=== PATIENT | female | born 1990 | race Caucasian/White ===

== ENCOUNTER → 2016-12-28 | Outpatient (CLI) | payer OTHER ==
--- NOTE | 2016-12-28 13:46 | US ---
EXAMINATION TYPE: US gallbladder DATE OF EXAM: 12/28/2016 12:58 PM COMPARISON: NONE CLINICAL HISTORY: Gen ABd Pain R10.84, Cholecystitis K81.81. Patient stated has mildly elevated LFT; on meds for depression, ADHD and control Scheduled for HIDA SCAN today. Patient denies abdomina l pain with or without food. EXAM MEASUREMENTS: Liver Length: 15.2 cm Gallbladder Wall: 0.2 cm CBD: 0.5 cm Right Kidney: 10.2 x 5.7 x 4.3 cm TECHNOLOGIST IMPRESSION: wnl Pancreas: wnl Liver: wnl Gallbladder: wnl Evidence for sonographic Reynolds's sign: No CBD: wnl Right Kidney: wnl There is no ascites. IMPRESSION: No significant abnormalities evident.
--- NOTE | 2016-12-28 15:29 | NM ---
EXAMINATION TYPE: NM hepatobiliary w CCK DATE OF EXAM: 12/28/2016 3:18 PM COMPARISON: Gallbladder ultrasound same day HISTORY: Abdominal pain, cholecystitis TECHNIQUE: After the intravenous administration of 5.34 mCi Tc 99m Mebrofenin hepatobiliary scintigra phy is performed. Immediate images post injection. FINDINGS: There is satisfactory initial accumulation of tracer by the liver. The gallbladder is visualized wit hin 6 minutes. The small bowel activity is noted within 28 minutes. At one hour CCK was administere d, patient was injected with 1.3 mcg of Kinevac, and gallbladder ejection fraction is calculated at 9 0 %. Therefore there is no scintigraphic evidence of cystic or common bile duct obstruction to [address]cell[address] st acute cholecystitis.. IMPRESSION: Gallbladder ejection fraction is 90%
== END | disposition home or self-care (01) ==
LOC: RADUSMAIN 11:56
PROVIDERS: ATTEND Surgery
DX: K81.9 Cholecystitis, unspecified (principal); R10.84 Generalized abdominal pain
CPT/HCPCS: 76705; 78227; A9537; J2805

== ENCOUNTER 2017-01-14 10:02 | Day surgery (SDC) | payer OTHER ==
[2017-01-11 15:58] VITALS: BMI 27.3
[~2017-01-14 10:02] MED LIST: DEXAMETHASONE SOD PHOSPHATE 10 MG/ML 1 ML VIAL IV ONE; HEPARIN SODIUM,PORCINE 5,000 UNIT/ML 1 ML VIAL SQ ONE; MIDAZOLAM 2 MG/2 ML VIAL IV PRN; ONDANSETRON 4 MG/2 ML VIAL IVP ONE; SCOPOLAMINE 1.5MG/72HR PATCH TRANSDERM ONE; ceFAZolin 2 GM in SODIUM CHLORIDE 0.9% 100 ML IVPB ONE
[2017-01-14 10:56] VITALS: RESP 16
[2017-01-14] MEDS: LACTATED RINGERS 1,000 ML IV SCH ×2 (11:16→13:30)
[2017-01-14] MEDS ORDERED: LIDOCAINE 1% 20 ML VIAL (10MG/ML) FOR IV START INTRADERMA ONE (11:17)
--- NOTE | 2017-01-14 12:07 | P.GSHP ---
History of Present Illness H&P Date: 01/14/17 Chief Complaint: Right upper quadrant pain Is a 26-year-old female referred from Dr. Sarath Morales. Patient resides today for laparoscopic cholecystectomy. Her recent HIDA scan shows abnormal ejection fraction consistent with biliary hyperkinesis - Constitutional Constitutional: Reports as per HPI Past Medical History Past Medical History: No Reported History, GERD/Reflux History of Any Multi-Drug Resistant Organisms: None Reported Past Surgical History: Tonsillectomy Additional Past Surgical History / Comment(s): ectopic Past Anesthesia/Blood Transfusion Reactions: No Reported Reaction Past Psychological History: Anxiety, Depression Smoking Status: Current every day smoker Past Alcohol Use History: None Reported Additional Past Alcohol Use History / Comment(s): Has smoked 1/2 PPd for 8 yrs Past Drug Use History: None Reported - Past Family History Mother Family Medical History: Cancer Medications and Allergies Home Medications Medication Instructions Recorded Confirmed Type Dextroamphetamine/Amphetamine 30 mg PO BID 05/31/16 01/14/17 History [Adderall] Sertraline HCl [Zoloft] 150 mg PO DAILY 05/31/16 01/14/17 History Etonogestrel [Nexplanon ( 68 mg SQ DIRECTED 01/11/17 01/14/17 History control implant)] Omeprazole (Unknown Dose) 1 tab PO DAILY PRN 01/11/17 01/14/17 History Allergies Allergy/AdvReac Type Severity Reaction Status Date / Time No Known Allergies Allergy Verified 01/14/17 10:56 Surgical - Exam Vital Signs Temp Pulse Resp BP Pulse Ox 98.3 F 71 16 107/73 98 01/14/17 10:55 01/14/17 10:55 01/14/17 10:55 01/14/17 10:55 01/14/17 10:55 - General well developed, no distress - Eyes PERRL - ENT normal pinna - Neck no masses - Respiratory normal expansion - Cardiovascular Rhythm: regular - Abdomen Abdomen: soft, non tender Assessment and Plan Plan: Abnormal HIDA scan Right upper quadrant pain Chronic cholecystitis We'll perform laparoscopic cholecystectomy
[2017-01-14] MEDS ORDERED: KETOROLAC 30 MG/ML 1 ML VIAL ONE (12:27)
[2017-01-14] MEDS ORDERED: LIDOCAINE 1% INJ 10MG/ML (20 ML MDV) ONE (12:27)
[2017-01-14] MEDS ORDERED: HYDROmorphone (PF) 1 MG/ML ONE (12:27)
[2017-01-14] MEDS ORDERED: ROCURONIUM BROMIDE 10 MG/ML 10 ML VIAL IV ONE (12:27)
[2017-01-14] MEDS ORDERED: fentaNYL (PF) 50 MCG/ML 2 ML AMP ONE (12:27)
[2017-01-14] MEDS ORDERED: NEOSTIGMINE 1 MG/ML 10 ML VIAL ONE (12:27)
[2017-01-14] MEDS ORDERED: MIDAZOLAM 2 MG/2 ML VIAL ONE (12:27)
[2017-01-14] MEDS ORDERED: GLYCOPYRROLATE 0.2 MG/ML 2 ML VIAL ONE (12:27)
[2017-01-14] MEDS ORDERED: PROPOFOL 10 MG/ML 20 ML VIAL IV ONE (12:27)
[2017-01-14] MEDS ORDERED: SUCCINYLCHOLINE CHLORIDE 100 MG/5 ML SYR IV ONE (12:27)
[2017-01-14] MEDS ORDERED: BUPIVACAIN-EPI 0.25%-1:200,000 30 ML VIAL SQ ONE (12:52)
--- NOTE | 2017-01-14 13:03 | P.OP ---
Date of Procedure: 01/14/17 Preoperative Diagnosis: Cholecystitis Postoperative Diagnosis: Cholecystitis Procedure(s) Performed: Laparoscopic cholecystectomy Anesthesia: MAC Surgeon: Primitivo Morfin Estimated Blood Loss (ml): 5 Pathology: other (Gallbladder) Condition: stable Disposition: PACU Description of Procedure: The patient was placed on the operating table. The patient received a general endotracheal tube anesthesia. The patients abdomen was prepped and draped in the usual sterile fashion. Through an infraumbilical stab incision, the fascia of the anterior abdominal wall was grasped with a pair of Kochers and then the Veress needle was placed in the peritoneal cavity. Position of the Veress needle was confirmed with positive drop test. The abdomen was then insufflated. After adequate insufflation, the 10 mm trocar was placed in the peritoneal cavity. Following this the laparoscope was placed in the peritoneal cavity. The patient was placed in the head-up, right side up position and then a 5 mm trocar was placed in the right lateral and right subcostal position under direct visualization. A 8 mm trocar was placed in the epigastric position. The gallbladder was grasped in the fundus and infundibulum. Traction on the gallbladder was placed in the lateral and the cephalad positions. The triangle of Calot was visualized.. The cystic duct was bluntly dissected until the union of the cystic duct and common bile duct was seen. The cystic duct was then divided and sealed with the Harmonic scissors. A PDS Endoloop was then placed throughout the cystic duct stump. The cystic artery divided and sealed with the Harmonic scissors. The gallbladder was then removed from the liver bed using Harmonic scissors. The gallbladder was then extracted through the epigastric port site. Operative field was checked for any bleeding spots and Harmonic scissors was used to coagulate the liver bed. The abdomen was irrigated. The trocars were removed. The skin was closed using interrupted 3-0 Vicryl suture. Dermabond dressing were applied. The patient tolerated the procedure well.
[2017-01-14 13:25] VITALS: TEMP 97.4
[2017-01-14] MEDS: HYDROmorphone 1 MG/ML 1 ML SYRINGE IVP PRN ×2 (13:30→13:45)
[2017-01-14] MEDS ORDERED: HYDROcodone/APAP 7.5-325MG 1 EACH TAB PO ONE (14:31)
[2017-01-14] MEDS ORDERED: ONDANSETRON 4 MG/2 ML VIAL IVP ONE (15:38)
[2017-01-14 15:40] VITALS: BP 140/73; PULSE 73
== END 2017-01-14 15:45 | disposition home or self-care (01) ==
LOC: OR 10:02
PROVIDERS: ATTEND Surgery
DX: K81.1 Chronic cholecystitis (principal); K21.9 Gastro-esophageal reflux disease without esophagitis; Z79.899 Other long term (current) drug therapy; F17.200 Nicotine dependence, unspecified, uncomplicated; F32.9 Major depressive disorder, single episode, unspecified; F41.9 Anxiety disorder, unspecified
CPT/HCPCS: 47562; 81025; 88304; J2250; J1644; J1100; J2710; J0690; J2405; J2001; J3010; J1885; J1170; J0330; J2704

== ENCOUNTER → 2017-04-22 | Outpatient (CLI) | payer OTHER ==
--- NOTE | 2017-04-22 15:30 | XR ---
Lumbar spine HISTORY: Low back pain 3 views of the lumbar spine No comparisons There is a mild spinal curvature. Lumbar vertebral bodies show preserved height, alignment, and bone mineralization. There is multilevel spondylosis. Loss of disc height L4-5 and L5-S1. IMPRESSION: Degenerative disc disease.
== END | disposition home or self-care (01) ==
LOC: RADXRMAIN 12:00
PROVIDERS: ATTEND Family Medicine
DX: M51.36 Other intervertebral disc degeneration, lumbar region (principal)
CPT/HCPCS: 72100

== ENCOUNTER 2018-04-05 21:29 | Emergency (ER) | payer OTHER ==
[2018-04-05 22:01] VITALS: BP 112/66; PULSE 84; RESP 20; TEMP 99.1
[2018-04-05] MEDS ORDERED: CEPHALEXIN 500 MG CAP PO STA (22:59)
[2018-04-05] MEDS ORDERED: SULFAMETHOX-TMP 800-160MG 1 EACH TAB PO STA (22:59)
--- NOTE | 2018-04-05 23:08 | ED ---
Skin/Abscess/FB HPI - General Chief complaint: Skin/Abscess/Foreign Body Stated complaint: skin problems on arm Time Seen by Provider: 04/05/18 22:54 Source: patient, RN notes reviewed Mode of arrival: ambulatory Limitations: no limitations - History of Present Illness Initial comments: This is a 27-year-old female who presents to the emergency department with chief complaint of possible abscess. Patient states that yesterday she noticed a red lesion on her left wrist. She states that it is painful and is worried that it may be infected. She does state that she was concerned for MRSA as she works at [employer] in the [employer] field. She denies any fevers or chills. Denies any active drainage. Denies chest pain or shortness of breath, nausea or vomiting, dizziness or headache. Denies history of MRSA. - Related Data Home Medications Medication Instructions Recorded Confirmed Sertraline HCl [Zoloft] 150 mg PO DAILY 05/31/16 04/05/18 Etonogestrel [Nexplanon ( 68 mg SQ DIRECTED 01/11/17 04/05/18 control implant)] Omeprazole (Unknown Dose) 1 tab PO DAILY PRN 01/11/17 04/05/18 Dextroamphetamine/Amphetamine 30 mg PO BID 04/05/18 04/05/18 [Adderall] Previous Rx's Medication Instructions Recorded Cephalexin [Keflex] 500 mg PO Q12HR #20 cap 04/05/18 Sulfamethox-Tmp 800-160Mg [Bactrim 1 tab PO Q12HR #20 tab 04/05/18 DS 800-160 mg] Allergies Allergy/AdvReac Type Severity Reaction Status Date / Time No Known Allergies Allergy Verified 01/14/17 10:56 Review of Systems ROS Statement: Those systems with pertinent positive or pertinent negative responses have been documented in the HPI. ROS Other: All systems not noted in ROS Statement are negative. Past Medical History Past Medical History: GERD/Reflux History of Any Multi-Drug Resistant Organisms: None Reported Past Surgical History: Cholecystectomy, Tonsillectomy Additional Past Surgical History / Comment(s): ectopic Past Anesthesia/Blood Transfusion Reactions: No Reported Reaction Past Psychological History: Anxiety, Depression Smoking Status: Current every day smoker Past Alcohol Use History: None Reported Past Drug Use History: None Reported - Past Family History Mother Family Medical History: Cancer General Exam - General Exam Comments Initial Comments: General: Awake and alert, well-developed; in no apparent distress. HEENT: Head atraumatic, normocephalic. Pupils are equal, round and reactive to light. Extraocular movements intact. Oropharynx moist without erythema or exudate. Neck: Supple. Normal ROM. Cardiovascular: Regular rate and rhythm. No murmurs, rubs or gallops. Chest symmetrical. Respiratory: Lungs clear to auscultation bilaterally. No wheezes, rales or rhonchi. Normal respiratory effort with no use of accessory muscles. Musculoskeletal: Normal ROM, no tenderness bilateral upper and lower extremities. Ambulating normally. Skin: [place], warm and dry. Approximately half centimeter in diameter erythematous blister like lesion that is indurated with approximately 4 cm in diameter surrounding soft tissue swelling. Central dried blood. Neurological: Alert and oriented x3. CN II-XII grossly intact. Speech is fluent and answers are appropriate. No focal neuro deficits. Psychiatric: Normal mood and affect. No overt signs of depression or anxiety noted. Limitations: no limitations Course Vital Signs 04/05/18 21:58 Temperature 99.1 F Pulse Rate 84 Respiratory 20 Rate Blood Pressure 112/66 O2 Sat by Pulse 100 Oximetry Medical Decision Making - Medical Decision Making This is a 27-year-old female presents to the emergency department with chief complaint of possible abscess on her left forearm. On physical examination, there is a small blister like lesion that is erythematous and tender. No fluctuance, however it is indurated. Patient will be treated for cellulitis. 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 She will be started on Bactrim and Keflex. Vital signs are stable and patient is afebrile. She'll be discharged home at this time. She is in agreement with plan and voices understanding. All questions answered. Disposition Clinical Impression: Cellulitis Disposition: HOME SELF-CARE Condition: Good Instructions: Cellulitis (ED) Additional Instructions: Please take medications as prescribed. Please apply warm compresses 3-4 times daily. Please follow up with primary care provider within 1-2 days. Return to emergency department if symptoms should worsen or any concerns arise. Prescriptions: Cephalexin [Keflex] 500 mg PO Q12HR #20 cap Sulfamethox-Tmp 800-160Mg [Bactrim DS 800-160 mg] 1 tab PO Q12HR #20 tab Is patient prescribed a controlled substance at d/c from ED?: No Referrals: Sarath Morales MD [Primary Care Provider] - 1-2 days Time of Disposition: 23:04
== END 2018-04-05 23:10 | disposition home or self-care (01) ==
LOC: EC 21:29
DX: L03.114 Cellulitis of left upper limb (principal); F41.9 Anxiety disorder, unspecified; F32.9 Major depressive disorder, single episode, unspecified; F17.200 Nicotine dependence, unspecified, uncomplicated; Z97.5 Presence of (intrauterine) contraceptive device; Z79.899 Other long term (current) drug therapy
CPT/HCPCS: 99283

== ENCOUNTER → 2018-09-19 | Outpatient (CLI) | payer OTHER ==
--- NOTE | 2018-09-19 10:18 | US ---
EXAMINATION TYPE: US abdomen complete DATE OF EXAM: 09/19/2018 COMPARISON: 2017 CLINICAL HISTORY: R10.9 Abd and pelvic pain. EXAM MEASUREMENTS: Liver Length: 13.9 cm Gallbladder Wall: Surgically absent cm CBD: 0.3 cm Spleen: 8.7l cm Right Kidney: 10.1 x 4.1 x 3.7l cm Left Kidney: 9.2 x 5.1 x 4.2 cm Pancreas: obscured by overlying bowel gas Liver: wnl Gallbladder: Surgically absent Evidence for sonographic Reynolds's sign: No CBD: wnl Spleen: wnl Right Kidney: No hydronephrosis or nephrolithiasis seen Left Kidney: No hydronephrosis or nephrolithiasis seen Upper IVC: wnl Abd Aorta: wnl IMPRESSION: No acute process
--- NOTE | 2018-09-19 10:21 | US ---
EXAMINATION TYPE: US pelvis complete transvag DATE OF EXAM: 09/19/2018 COMPARISON: NONE CLINICAL HISTORY: R10.9 Abd and pelvic pain. TECHNIQUE: Transvaginal (TV) and Transabdominal (TA) . Transabdominal sonographic images of the pel vis were acquired. Transvaginal sonographic images were medically necessary to better assess the fol lowing anatomy: endometrium Date of LMP: 09/12/2018 EXAM MEASUREMENTS: Uterus: 7.0 x 2.6 x 3.2 cm Endometrial Stripe: 0.3 cm Right Ovary: 2.3 x 1.2 x 2.0 cm Left Ovary: 1.9 x 1.5 x 2.7 cm 1. Uterus: Anteverted small nabothian cyst 0.5 x 0.5 x 0.6 cm 2. Endometrium: wnl 3. Right Ovary: large cyst 4.6 x 3.6 x 5.7 cm 4. Left Ovary: small cyst 0.8 x 0.8 x0.8 cm 5. Posterior cul-de-sac: rt cyst extends into cul de sac IMPRESSION: 1. There is a large right ovarian cyst measuring 5.7 cm. Extends into the cul-de-sac to the right. Re commend a follow-up exam in 6 weeks to assess for resolution.
== END | disposition home or self-care (01) ==
LOC: RADUSWWP 09:15
PROVIDERS: ATTEND Family Medicine
DX: N83.201 Unspecified ovarian cyst, right side (principal)
CPT/HCPCS: 76700; 76830; 76856

== ENCOUNTER 2019-02-23 06:30 | Day surgery (SDC) | payer OTHER ==
[2019-02-20 13:34] VITALS: BMI 27.3
[~2019-02-23 06:30] MED LIST changes: +HYDROmorphone 0.5 MG/0.5 ML SYRINGE IVP PRN; +LACTATED RINGERS 1,000 ML IV SCH; -MIDAZOLAM 2 MG/2 ML VIAL IV PRN; +MORPHINE SULFATE 2 MG/ML SYRINGE IV PRN; +Pre Op ABX Message 1 EACH MISC MISCELLANE ONE; -SCOPOLAMINE 1.5MG/72HR PATCH TRANSDERM ONE; -ceFAZolin 2 GM in SODIUM CHLORIDE 0.9% 100 ML IVPB ONE
[2019-02-23 06:48] VITALS: RESP 16
[2019-02-23] MEDS ORDERED: LIDOCAINE 1% 20 ML VIAL (10MG/ML) FOR IV START INTRADERMA ONE (06:55)
[2019-02-23] MEDS ORDERED: fentaNYL (PF) 50 MCG/ML 2 ML AMP ONE (07:38)
[2019-02-23] MEDS ORDERED: LIDOCAINE 1% INJ 10MG/ML (20 ML MDV) ONE (07:38)
[2019-02-23] MEDS ORDERED: MIDAZOLAM 2 MG/2 ML VIAL ONE (07:38)
[2019-02-23] MEDS ORDERED: PROPOFOL 10 MG/ML 20 ML VIAL IV ONE (07:38)
--- NOTE | 2019-02-23 07:40 | P.GSHP ---
History of Present Illness H&P Date: 02/23/19 Chief Complaint: Left arm foreign body Patient here today for removal left arm foreign body. The patient had a subcutaneous contraceptive implant placed in the left medial brachial region. Attempts at removing this in the office by gynecology were unsuccessful. A she has mild discomfort there. No numbness or tingling. No weakness. She usually cannot feel the area herself. Past Medical History Past Medical History: GERD/Reflux History of Any Multi-Drug Resistant Organisms: None Reported Past Surgical History: Cholecystectomy, Tonsillectomy Additional Past Surgical History / Comment(s): ectopic Past Anesthesia/Blood Transfusion Reactions: No Reported Reaction Smoking Status: Current every day smoker - Past Family History Mother Family Medical History: Cancer Medications and Allergies Home Medications Medication Instructions Recorded Confirmed Type Sertraline HCl [Zoloft] 50 mg PO DAILY 05/31/16 02/23/19 History Etonogestrel [Nexplanon ( 68 mg SQ DIRECTED 01/11/17 02/23/19 History control implant)] Dextroamphetamine/Amphetamine 30 mg PO BID 04/05/18 02/23/19 History [Adderall] Omeprazole [PriLOSEC] 20 mg PO AC-BRKFST 02/20/19 02/23/19 History Allergies Allergy/AdvReac Type Severity Reaction Status Date / Time No Known Allergies Allergy Verified 02/23/19 06:47 Surgical - Exam Vital Signs Temp Pulse Resp BP Pulse Ox 9.7 F L 72 16 106/61 97 02/23/19 06:45 02/23/19 06:45 02/23/19 06:45 02/23/19 06:45 02/23/19 06:45 Physical exam: General: Well-developed, well-nourished HEENT: Normocephalic, sclerae nonicteric Abdomen: Nontender, nondistended Extremities: No edema, 1 cm transverse incision medial brachial region, very subtle palpation of linear foreign body Neuro: Alert and oriented Assessment and Plan (1) Foreign body in left upper extremity Narrative/Plan: Options reviewed with the patient previously. We'll proceed with removal at this time. Risks of bleeding, infection, nerve injury reviewed. She understands and wishes to proceed. Current Visit: Yes Status: Acute Code(s): S40.852A - SUPERFICIAL FOREIGN BODY OF LEFT UPPER ARM, INIT ENCNTR SNOMED Code(s): 571196846
[2019-02-23] MEDS ORDERED: SODIUM CHLORIDE 0.9% 100 ML with ceFAZolin 1,000 MG IV ONE ×2 (08:03)
[2019-02-23] MEDS ORDERED: SODIUM CHLORIDE 0.9% 100 ML with ceFAZolin 2,000 MG IV ONE ×2 (08:03)
[2019-02-23] MEDS ORDERED: BUPIVACAINE-EPI 0.5%-1:200,000 10 ML VIAL SQ ONE (08:04)
[2019-02-23 08:36] VITALS: TEMP 97.3
[2019-02-23] MEDS ORDERED: NALOXONE 0.4 MG/ML 1 ML VIAL IV PRN (08:43)
[2019-02-23] MEDS ORDERED: HYDROcodone/APAP 5-325MG 1 EACH TAB PO PRN (08:43)
--- NOTE | 2019-02-23 08:46 | P.OP ---
Date of Procedure: 02/23/19 Procedure(s) Performed: PREOPERATIVE DIAGNOSIS: Left arm foreign body POSTOPERATIVE DIAGNOSIS: Same PROCEDURE: Removal left arm foreign body with fluoroscopy SURGEON: Lidia EBL: Minimal ANESTHESIA: General COMPLICATIONS: None OPERATIVE PROCEDURE: Age and placed in the operative table in the supine position. The patient was placed under general anesthesia. The left arm was prepped and draped sterilely. The previous incision was re-incised. Using fluoroscopy I was able to identify the location of the foreign body. Careful dissection through the subcutaneous tissues using primarily blunt dissection took place. The linear contraceptive device was encapsulated. Sharp dissection over the encapsulation took place. The foreign body was then removed in one piece without difficulty. The subcutaneous tissues were closed using 3-0 Vicryl sutures. The skin was closed using 4-0 Monocryl suture. Skin glue was then applied. DISPOSITION: Stable to recovery room
--- NOTE | 2019-02-23 09:20 | XR ---
EXAMINATION TYPE: XR humerus LT DATE OF EXAM: 02/23/2019 COMPARISON: NONE HISTORY: Pain TECHNIQUE: 2 views submitted. FINDINGS: 2 Limited intraoperative views are obtained demonstrate intraoperative procedure as part of a foreign body retrieval. IMPRESSION: 1. Intraoperative image of the left humerus
--- NOTE | 2019-02-23 09:21 | FL ---
EXAMINATION TYPE: FL guidance operating room DATE OF EXAM: 02/23/2019 HISTORY: Flouroscopy time 13 seconds of fluoroscopy provided. IMPRESSION: 1. Fluoroscopy time.
[2019-02-23 09:36] VITALS: BP 103/68; PULSE 65
== END 2019-02-23 09:52 | disposition home or self-care (01) ==
LOC: OR 06:30
PROVIDERS: ATTEND Surgery
DX: S40.852A Superficial foreign body of left upper arm, initial encounter (principal); K21.9 Gastro-esophageal reflux disease without esophagitis; F17.210 Nicotine dependence, cigarettes, uncomplicated; F32.9 Major depressive disorder, single episode, unspecified; F41.9 Anxiety disorder, unspecified; Z79.899 Other long term (current) drug therapy; Z79.3 Long term (current) use of hormonal contraceptives
CPT/HCPCS: 10120; 81025; 73060; J2250; J1644; J1100; J2405; J0690; J2001; J3010; J2704

== ENCOUNTER → 2019-08-07 | Outpatient (CLI) | payer OTHER ==
--- NOTE | 2019-08-07 16:31 | US ---
EXAMINATION TYPE: Transabdominal DATE OF EXAM: 08/07/2019 1:58 PM COMPARISON: NONE CLINICAL HISTORY: Z36 Confirm dates. Confirm dates EXAM PERFORMED: Transabdominal (TA) EXAM MEASUREMENTS: GESTATIONAL AGE / DATING Physician Established: Not yet established Dates by LMP: LMP unknown Dates by First Scan: No previous this is first scan Dates by Current Scan for: (11 weeks/0 days) EDC: 02/26/2020 MATERNAL ANATOMY Uterus: 11.8 x 7.1 x 8.2 cm Right Ovary: 3.2 x 1.9 x 2.0 cm Left Ovary: Obscured by bowel gas. Post CDS / Adnexa: wnl Presence of free fluid: no Presence of corpus luteal cyst: yes right Presence of subchorionic bleed: Yes 2.3 x 1.0 x 2.3 cm. GESTATION / SURVEY CRL: 4.0cm (11 weeks/0 days) Heart Rate: 142 bpm Rhythm: normal IUP: Viable IUP IMPRESSION: 1. Single intrauterine gestation estimated at 11 weeks 0 days gestation based on crown-rump length. C ardiac activity measures 142 bpm.
== END | disposition home or self-care (01) ==
LOC: RADUSWWP 13:28
PROVIDERS: ATTEND Obstetrics & Gynecology
DX: Z36.89 Encounter for other specified antenatal screening (principal)
CPT/HCPCS: 76801

== ENCOUNTER 2020-02-08 07:51 | Inpatient (IN) | payer OTHER ==
[2020-02-08] MEDS ORDERED: METHYLERGONOVINE 0.2 MG/ML 1 ML AMP IM PRN (08:10)
[2020-02-08] MEDS ORDERED: CARBOPROST TROMETHAMINE 250 MCG/ML 1 ML AMP IM PRN (08:10)
[2020-02-08] MEDS ORDERED: LIDOCAINE 0.5% (PF) 5 MG/ML (50 ML SDV) SQ PRN (08:10)
[2020-02-08] MEDS ORDERED: AMPICILLIN 2,000 MG in SODIUM CHLORIDE 0.9% 100 ML IVPB STA (08:10)
[2020-02-08] MEDS ORDERED: TERBUTALINE 1 MG/ML VIAL SQ PRN (08:10)
[2020-02-08] MEDS ORDERED: OXYTOCIN 10 UNIT/ML 1 ML VIAL IM PRN (08:10)
[2020-02-08] MEDS ORDERED: OXYTOCIN 30 UNITS/500 ML NS 30 UNIT in SALINE 1 500ML.BAG IV SCH (08:15)
[2020-02-08] MEDS ORDERED: LACTATED RINGERS 1,000 ML IV SCH (08:15)
--- NOTE | 2020-02-08 08:40 | P.HPOB ---
History of Present Illness H&P Date: 02/08/20 Chief Complaint: Spontaneous rupture of membranes, contractions This is a 29-year-old female 3 para 1 with an estimated date of confinement of 02/26/2020, estimated gestational age of 37-4/7 weeks, who presents to labor and delivery with complaints of spontaneous rupture membranes with clear fluid noted at 4 AM this morning. She began feeling contractions shortly thereafter and currently is complaining of regular strong contractions. Her care has been with Dr. Jackson and has been uncomplicated per patient. She hasn't seen him however since 32 weeks. She did have an elevated 1 hour Glucola but 3 hour Glucola was within normal limits. labs: Hepatitis B surface antigen-negative RPR-nonreactive Rubella-immune Blood type-be positive Antibody screen-negative HIV-nonreactive Hemoglobin-11.4 Toxoplasma screen-negative One hour Glucola-136 Three-hour Glucola-within normal limits Obstetrical history: . History of 1 ectopic with exploratory laparotomy for removal of ectopic . She thinks that they just remove the ectopic and not the tube. She also has a history of 1 vaginal delivery at term. Social history: She is single. She works part-time [employer] but has not been to work recently. Review of Systems Constitutional: Denies chills, Denies fever Eyes: denies blurred vision, denies pain Ears, nose, mouth and throat: Denies headache, Denies sore throat Cardiovascular: Denies chest pain, Denies shortness of breath Respiratory: Denies cough Gastrointestinal: Reports abdominal pain (Contractions) Genitourinary: Reports pelvic pain, Reports Musculoskeletal: Reports low back pain Integumentary: Denies pruritus, Denies rash Neurological: Denies numbness, Denies weakness Psychiatric: Denies anxiety, Denies depression Past Medical History Past Medical History: GERD/Reflux History of Any Multi-Drug Resistant Organisms: None Reported Past Surgical History: Cholecystectomy, Tonsillectomy Additional Past Surgical History / Comment(s): Exploratory laparotomy with removal of ectopic , surgical removal of Nexplanon implant Past Anesthesia/Blood Transfusion Reactions: No Reported Reaction Smoking Status: Current every day smoker Past Alcohol Use History: None Reported Past Drug Use History: None Reported - Past Family History Mother Family Medical History: Cancer Medications and Allergies Home Medications Medication Instructions Recorded Confirmed Type Sertraline HCl [Zoloft] 50 mg PO DAILY 05/31/16 02/08/20 History Pnv No.95/Ferrous Fum/Folic AC 1 each PO DAILY 02/08/20 02/08/20 History [ Multivitamin Tablet] Allergies Allergy/AdvReac Type Severity Reaction Status Date / Time No Known Allergies Allergy Verified 02/23/19 06:47 Exam Osteopathic Statement: *. No significant issues noted on an osteopathic structural exam other than those noted in the History and Physical/Consult. Intake and Output 02/07/20 02/08/20 02/08/20 22:59 06:59 14:59 Other: Weight 77.111 kg HEENT: Within normal limits Heart: Regular rate and rhythm Lungs: Clear to auscultation bilaterally Abdomen: heart tones: Reactive with category 1 tracing Contractions: Every 2-3 minutes Extremities: Negative Homans Assessment and Plan (1) 37 weeks gestation of Current Visit: Yes Status: Acute Code(s): Z3A.37 - 37 WEEKS GESTATION OF SNOMED Code(s): 82509872 Plan: Admission for active labor. Antibiotic prophylaxis secondary to unknown group B streptococcus. Expectant management. Epidural anesthesia if desired.
[2020-02-08 08:46] LABS: Basophils % (A) 0 %; Eosinophils # (A) 0.2 k/uL (0-0.7); Eosinophils % (A) 2 %; HCT 36.5 % (34.0-46.0); HGB 11.9 gm/dL (11.4-16.0); Lymphocytes # (A) 1.9 k/uL (1.0-4.8); Lymphocytes % (A) 16 %; MCH 29.4 pg (25.0-35.0); MCHC 32.8 g/dL (31.0-37.0); MCV 89.7 fL (80.0-100.0); Monocytes # (A) 0.7 k/uL (0-1.0); Monocytes % (A) 6 %; Neutrophils # (A) 9.1 k/uL (1.3-7.7); Neutrophils % (A) 75 %; Platelet Count 215 k/uL (150-450); RBC 4.06 m/uL (3.80-5.40); RDW 13.1 % (11.5-15.5); WBC 12.2 k/uL (3.8-10.6)
[2020-02-08] MEDS ORDERED: SIMETHICONE 80 MG CHEWABLE PO PRN (09:38)
[2020-02-08] MEDS ORDERED: diphenhydrAMINE 50 MG CAP PO PRN (09:38)
[2020-02-08] MEDS ORDERED: diphenhydrAMINE 25 MG CAP PO PRN (09:38)
[2020-02-08] MEDS ORDERED: HYDROCORTISONE 2.5% RECTAL CREAM 30 GM TUBE RECTAL PRN (09:38)
[2020-02-08] MEDS ORDERED: BENZOCAINE/MENTHOL SPRAY 1 GM/SPRAY AEROSOL TOPICAL PRN (09:38)
[2020-02-08] MEDS ORDERED: WITCH HAZEL 1 EACH MED..PAD TOPICAL PRN (09:38)
[2020-02-08] MEDS ORDERED: ZOLPIDEM 5 MG TAB PO PRN (09:38)
[2020-02-08] MEDS ORDERED: LANOLIN CREAM 5 GM TUBE TOPICAL PRN (09:38)
[2020-02-08] MEDS ORDERED: OXYTOCIN 20 UNITS/1000 ML NS 1,000 ML IV SCH (09:45)
[2020-02-08 09:59] LABS: Amphetamine Screen,Urine Not Detected (NotDetected); Barbiturate Screen,Urine Not Detected (NotDetected); Benzodiazepines Screen,Urine Not Detected (NotDetected); Cocaine Screen,Urine Not Detected (NotDetected); Methadone Screen, Urine Not Detected (NotDetected); Opiate Screen,Urine Not Detected (NotDetected); Oxycodone Screen, Urine Not Detected (NotDetected); Phencyclidine Screen,Urine Not Detected (NotDetected); Tricyclic Antidepressant,Urine Not Detected (NotDetected); Urn Cannabinoid Scrn Detected (NotDetected)
[2020-02-08] MEDS: ACETAMINOPHEN TAB 325 MG TAB PO PRN ×2 (10:34→17:22)
[2020-02-08] MEDS ORDERED: AMPICILLIN 1,000 MG in SODIUM CHLORIDE 0.9% 50 ML IVPB SCH (12:11)
[2020-02-08] MEDS: IBUPROFEN 600 MG TAB PO PRN ×2 (12:13→23:42)
--- NOTE | 2020-02-08 12:16 | P.PROBDLV ---
Vaginal Delivery Note - . Vaginal Delivery Note: The patient progressed to complete dilation spontaneously. She did not receive epidural anesthesia. She did receive 1 dose of antibiotic. Once reaching complete, she began pushing. 's head came to a crown. Infant's head delivered across the perineum followed by the anterior shoulder and then the remainder the . Infant was placed on mother's abdomen. Nose and mouth were bulb suctioned at the perineum and cord was clamped and cut. was taken to warmer for evaluation. A viable male infant was noted with scores of 9 at 1 minute and 9 at 5 minutes and infant weight was noted to be 6 lbs. 14 oz. Placenta delivered shortly thereafter, intact, with a three-vessel cord. Uterus initially contracted fairly well after oxytocin was given and uterine massage was carried out. Inspection of the perineum revealed no perineal lacerations. Estimated blood loss at this time was approximately 150 mL. I was called back to see the patient approximate hour after delivery due to heavy bleeding. She had a large gush of bloody fluid. Several large clots were expressed from the uterus and I placed a gloved hand within the uterine cavity. I was able to remove a couple small pieces of what appeared to be placental tissue. No further tissue was obtained and uterus did contract fairly well at this point in time fundus was firm and she had also been given Methergine. Just now I was called in to see the patient after she passed a couple more clots. I massaged her uterus and one fairly large clot was passed again and no further clots were palpated within the vagina. Uterus is still firm. She will continue on oxytocin for a second bag. She will be given some ibuprofen for pain control. We'll continue with close monitoring of uterine fundus and close observation. Total estimated blood loss at this point is approximately 1000 m L's.
[2020-02-08] MEDS: SENNOSIDES-DOCUSATE SODIUM 1 EACH TAB PO SCH (21:23)
[2020-02-09] MEDS: ACETAMINOPHEN TAB 325 MG TAB PO PRN ×3 (04:06→20:29)
[2020-02-09 06:27] LABS: Basophils % (A) 0 %; Eosinophils # (A) 0.2 k/uL (0-0.7); Eosinophils % (A) 2 %; HCT 23.8 % (34.0-46.0); Lymphocytes # (A) 2.1 k/uL (1.0-4.8); Lymphocytes % (A) 19 %; MCH 29.8 pg (25.0-35.0); MCHC 32.9 g/dL (31.0-37.0); MCV 90.6 fL (80.0-100.0); Mean Platelet Volume 10.2; Monocytes # (A) 0.5 k/uL (0-1.0); Monocytes % (A) 4 %; Neutrophils % (A) 71 %; Platelet Count 179 k/uL (150-450); RBC 2.63 m/uL (3.80-5.40); RDW 13.4 % (11.5-15.5); WBC 11.2 k/uL (3.8-10.6)
[2020-02-09 06:33] LABS: HGB 7.8 gm/dL (11.4-16.0)
[2020-02-09] MEDS: SENNOSIDES-DOCUSATE SODIUM 1 EACH TAB PO SCH ×2 (08:56→20:29)
[2020-02-09] MEDS: IBUPROFEN 600 MG TAB PO PRN ×2 (08:56→17:28)
--- NOTE | 2020-02-09 12:11 | P.PNOBGVD ---
Subjective - Subjective Principal diagnosis: Status post vaginal delivery day #1 Interval history: Patient is doing okay today. Her bleeding has significantly slowed. She is working on pumping her breast milk. Her baby is in level I nursery on oxygen. Pain is fairly well controlled. Patient reports: Reports appetite normal, Reports voiding normally, Reports pain well controlled, Reports ambulating normally [place]: other (In level I nursery) Objective - Latest Vital Signs Latest vital signs: Vital Signs Temp Pulse Resp BP Pulse Ox 02/09/20 08:00 98.7 F 84 18 93/64 98 02/09/20 04:00 98.5 F 88 17 109/70 99 02/09/20 00:00 98.8 F 91 17 117/81 98 02/08/20 20:00 98.8 F 99 18 115/72 98 02/08/20 17:00 83 18 110/76 99 02/08/20 15:15 97.5 F L 93 18 119/69 02/08/20 14:36 98.6 F 72 18 118/79 02/08/20 14:00 97.8 F 75 18 119/75 02/08/20 13:30 97.8 F 100 18 122/73 02/08/20 13:00 97.8 F 90 18 130/81 Intake and Output 02/08/20 02/09/20 02/09/20 22:59 06:59 14:59 Other: # Voids 1 1 # Bowel Movements 0 - Exam Extremities: Present: normal. Absent: tenderness, edema Abdomen: Present: normal appearance, soft. Absent: distention, tenderness Uterus: Present: normal, firm, tenderness (Minimal) - Labs Labs: Abnormal Lab Results - Last 24 Hours (Table) 02/09/20 Range/Units 05:35 WBC 11.2 H (3.8-10.6) k/uL RBC 2.63 L (3.80-5.40) m/uL Hgb 7.8 L D (11.4-16.0) gm/dL Hct 23.8 L (34.0-46.0) % Neutrophils # 8.0 H (1.3-7.7) k/uL Assessment and Plan Assessment: Status post vaginal delivery day #1. Status post hemorrhage-stable. (1) 37 weeks gestation of Current Visit: Yes Status: Acute Code(s): Z3A.37 - 37 WEEKS GESTATION OF SNOMED Code(s): 11820997 Plan: Patient encouraged to restart her vitamins. Encouraged ambulation. Anticipate discharge home tomorrow.
[2020-02-09] MEDS ORDERED: SERTRALINE 50 MG TAB PO SCH (12:15)
[2020-02-09] MEDS: PRENATAL VIT-IRON-FOLIC ACID 1 EACH CAP PO SCH (12:26)
[2020-02-10] MEDS: IBUPROFEN 600 MG TAB PO PRN ×3 (02:13→15:21)
--- NOTE | 2020-02-10 07:30 | P.DS ---
Providers Date of admission: 02/08/20 08:17 Expected date of discharge: 02/10/20 Attending physician: Mayo Jackson Primary care physician: Stated None - Discharge Diagnosis(es) (1) 37 weeks gestation of Current Visit: Yes Status: Acute Hospital Course: This is a 29-year-old female 3 para 1 at 37-3/7 weeks who presented in active labor. She delivered vaginally a viable male infant on 02/08/2020 with scores of 9 at 1 minute and 9 at 5 minutes and infant weight of 6 lbs. 14 oz. Her course was complicated by hemorrhage shortly after delivery. She was given a dose of Methergine and several blood clots were expressed including a small piece of placental tissue. Even after the placental tissue was removed she did pass some further clot but eventually it did slow. Her hemoglobin did drop to 7.8 but she has been asymptomatic. Her baby did get transferred to level I nursery on oxygen. She is pumping breast milk. Lochia is decreasing now. Her pain is fairly well controlled now. Vital signs are stable. Abdomen is soft with fundus firm and nontender. Extremities show negative Homans. Impression is status post vaginal delivery day #2. Plan is to discharge home today. Routine instructions are given. She will be given a prescription for ibuprofen. She is advised to follow up with Dr. Jackson in the office in 6 weeks. She is advised to call the office if she has any further questions or concerns prior to her appointment time. She is encouraged to continue taking her vitamins. Procedures: Spontaneous vaginal delivery of a viable male on 02/08/2020 Patient Condition at Discharge: Stable Plan - Discharge Summary New Discharge Prescriptions: New Ibuprofen [Motrin] 600 mg PO Q6HR PRN #60 tab PRN Reason: Mild Pain Or Fever >= 100.5 Continue Sertraline HCl [Zoloft] 50 mg PO DAILY Pnv No.95/Ferrous Fum/Folic AC [ Multivitamin Tablet] 1 each PO DAILY Discharge Medication List Sertraline HCl [Zoloft] 50 mg PO DAILY 05/31/16 [History] Pnv No.95/Ferrous Fum/Folic AC [ Multivitamin Tablet] 1 each PO DAILY 02/08/20 [History] Ibuprofen [Motrin] 600 mg PO Q6HR PRN #60 tab 04/05/20 [Rx] Follow up Appointment(s)/Referral(s): Mayo Jackson DO [Doctor of Osteopathic Medicine] - 6 Weeks Activity/Diet/Wound Care/Special Instructions: Instructions 1. Do not begin any exercise program for 3 weeks. 2. Do not resume sexual relations for 3 weeks or longer if uncomfortable. 3. You may take tub baths or showers at any time. 4. You may use tampons if desired after 3 weeks. 5. Keep the area of episiotomy (stitches) clean and dry. 6. If you are not nursing, wear a good fitting, supportive bra during the day and limit fluid intake for at least 1 week to prevent breast engorgement. 7. Call the office, [phone], within the next week to make appointment for your 6 week checkup if it has not already been made. 8. Report any of the following occurrences to the doctor promptly: a. Heavy, excessive bleeding b. Chills, fever c. Burning or frequency of urination d. Pain or redness and breasts if nursing e. Increasing pain or swelling in episiotomy (stitches). In addition to the above instructions, the following additional should be followed: 1. No heavy lifting or straining (exercising) until after 6 week checkup. 2. Keep abdominal incision clean and dry: You may wear a dressing if more comfortable. 3. Make office appointment for 10 days after going home or as instructed by her doctor. Discharge Disposition: HOME SELF-CARE
[2020-02-10] MEDS: SENNOSIDES-DOCUSATE SODIUM 1 EACH TAB PO SCH (09:17)
[2020-02-10 09:43] VITALS: TEMP 97.9
[2020-02-10] MEDS: PRENATAL VIT-IRON-FOLIC ACID 1 EACH CAP PO SCH (12:12)
[2020-02-10 15:21] VITALS: BP 114/74; PULSE 73; RESP 16
[2020-02-10] MEDS: ACETAMINOPHEN TAB 325 MG TAB PO PRN (18:00)
== END 2020-02-10 18:10 | disposition home or self-care (01) | DRG 807 ==
LOC: FBPOP 07:51 → 4FBP 08:17
PROVIDERS: ADMIT Obstetrics & Gynecology; ATTEND Obstetrics & Gynecology
PROC: 10D17Z9 Manual Extraction of Products of Conception, Retained, Via Natural or Artificial Opening (ICD-10-PCS; principal; 2020-02-08)
PROC: 10E0XZZ Delivery of Products of Conception, External Approach (ICD-10-PCS; principal; 2020-02-08)
DX: O99.334 Smoking (tobacco) complicating childbirth (principal); Z37.0 Single live birth; F17.210 Nicotine dependence, cigarettes, uncomplicated; O72.2 Delayed and secondary postpartum hemorrhage; Z3A.37 37 weeks gestation of pregnancy; Z79.899 Other long term (current) drug therapy; Z90.49 Acquired absence of other specified parts of digestive tract
CPT/HCPCS: 59025; 80306; 84112; 85025; 86850; 86900; 86901; 88307; 99213

== ENCOUNTER 2023-07-01 16:22 | Observation (INO) | payer OTHER ==
--- NOTE | 2023-07-01 17:48 | ED ---
General Adult HPI - General Source: patient Mode of arrival: ambulatory Limitations: no limitations <Maggy Agarwal - Last Filed: 07/01/23 17:46> <Nancy Chavez - Last Filed: 07/02/23 00:46> - General Chief complaint: Urogenital Stated complaint: POSS. Time Seen by Provider: 07/01/23 17:47 - History of Present Illness Initial comments: 33-year-old female presenting with chief chest pain. Patient is also concerned that she may be which is following her anxiety due to history of ectopic. Pain started yesterday. (Maggy Agarwal) 33-year-old female presents to the emergency department stating that she just doesn't feel right. Presents with pelvic pain, increased frequency of urination, breast pain. States that she took a test today and it was positive. Last menstrual cycle was May 26. She is . She has a history of an ectopic . Is concerned about her abdominal pain and recurrence of an ectopic. Patient also admits to some chest pain which occurred yesterday. States it lasted for approximately 24 hours and is now completely resolved at this time. No associated shortness of breath. No fevers or chills. No history of cardiac disease. She denies any vaginal bleeding. No changes in her bowel or bladder habits. No other alleviating, precipitating or modifying factors (Nancy Chavez) - Related Data Home Medications Medication Instructions Recorded Confirmed No Known Home Medications 07/01/23 07/01/23 Allergies Allergy/AdvReac Type Severity Reaction Status Date / Time No Known Allergies Allergy Verified 07/01/23 22:33 Review of Systems ROS Other: All systems not noted in ROS Statement are negative. <Maggy Agarwal - Last Filed: 07/01/23 17:46> ROS Other: All systems not noted in ROS Statement are negative. <Nancy Chavez - Last Filed: 07/02/23 00:46> ROS Statement: Those systems with pertinent positive or pertinent negative responses have been documented in the HPI. Past Medical History Past Medical History: GERD/Reflux History of Any Multi-Drug Resistant Organisms: None Reported Past Surgical History: Cholecystectomy, Tonsillectomy Additional Past Surgical History / Comment(s): Exploratory laparotomy with removal of ectopic , surgical removal of Nexplanon implant Past Anesthesia/Blood Transfusion Reactions: No Reported Reaction Past Psychological History: Anxiety, Depression Smoking Status: Current every day smoker Past Alcohol Use History: None Reported Past Drug Use History: None Reported - Past Family History Mother Family Medical History: Cancer <Maggy Agarwal - Last Filed: 07/01/23 17:46> General Exam Limitations: no limitations <Maggy Agarwal - Last Filed: 07/01/23 17:46> General appearance: alert, in no apparent distress Head exam: Present: atraumatic, normocephalic, normal inspection Eye exam: Present: normal appearance, PERRL, EOMI. Absent: scleral icterus, conjunctival injection, periorbital swelling ENT exam: Present: normal exam, mucous membranes moist Neck exam: Present: normal inspection. Absent: tenderness, meningismus, lymphadenopathy Respiratory exam: Present: normal lung sounds bilaterally. Absent: respiratory distress, wheezes, rales, rhonchi, stridor Cardiovascular Exam: Present: regular rate, normal rhythm, normal heart sounds. Absent: systolic murmur, diastolic murmur, rubs, gallop, clicks GI/Abdominal exam: Present: soft, normal bowel sounds. Absent: distended, tenderness, guarding, rebound, rigid Extremities exam: Present: normal inspection, full ROM, normal capillary refill. Absent: tenderness, pedal edema, joint swelling, calf tenderness Back exam: Present: normal inspection Neurological exam: Present: alert, oriented X3, CN II-XII intact Psychiatric exam: Present: normal affect, normal mood Skin exam: Present: warm, dry, intact, normal color. Absent: rash <Nancy Chavez - Last Filed: 07/02/23 00:46> - General Exam Comments Initial Comments: Visual Physical Exam Vital signs reviewed General: Well-appearing, nontoxic, no acute distress. Head: Normocephalic, atraumatic Eyes: PERRLA, EOMI ENT: Airway patent Chest: Nonlabored breathing Skin: No visual rash, normal skin tone Neuro: Alert and oriented 3 Musculoskeletal: No gross abnormalities (Maggy Agarwal) Course Vital Signs 07/01/23 07/01/23 17:39 22:52 Temperature 98.0 F Pulse Rate 82 79 Respiratory 15 16 Rate Blood Pressure 108/75 100/65 O2 Sat by Pulse 100 99 Oximetry Medical Decision Making - Lab Data Result diagrams: 07/01/23 18:45 07/01/23 18:45 <Nancy Chavez A - Last Filed: 07/02/23 00:46> - Medical Decision Making Was pt. sent in by a medical professional or institution (LACY Harrison, MECHANICS SUPERVISOR, urgent care, hospital, or snf...) When possible be specific @ -No Did you speak to anyone other than the patient for history (EMS, parent, family, police, friend...)? What history was obtained from this source @ -No Did you review nursing and triage notes (agree or disagree)? Why? @ -I reviewed and agree with nursing and triage notes Were old charts reviewed (outside hosp., previous admission, EMS record, old EKG, old radiological studies, urgent care reports/EKG's, snf records)? Report findings @ -No old charts were reviewed Differential Diagnosis (chest pain, altered mental status, abdominal pain women, abdominal pain men, vaginal bleeding, weakness, fever, dyspnea, syncope, headache, dizziness, GI bleed, back pain, seizure, CVA, palpatations, mental health, musculoskeletal)? @ -Differential Abdominal Pain Women: Appendicitis, Cholecystitis, diverticulosis, ischemic bowel, pancreatitis, hepatitis, UTI, gastroenteritis, AAA, incarcerated hernia, bowel obstruction, constipation, inflammatory bowel, hepatitis, peptic ulcer disease, splenic in farction, perforated viscus, vulvitis, ovarian torsion, PID, kidney stone, placenta abruption, this is not meant to be an all-inclusive list EKG interpreted by me (3pts min.). @ -Yes and demonstrates sinus rhythm with rate of 74. AL interval 153. QRS 111. QTC 451. No acute ST segment elevations or depressions X-rays interpreted by me (1pt min.). @ -Yes and demonstrates no acute intrathoracic process CT interpreted by me (1pt min.). @ -None done U/S interpreted by me (1pt. min.). @ -Yes and demonstrates a yolk sac What testing was considered but not performed or refused? (CT, X-rays, U/S, labs)? Why? @ -None What meds were considered but not given or refused? Why? @ -None Did you discuss the management of the patient with other professionals (professionals i.e. Dr., PA, MECHANICS SUPERVISOR, lab, RT, psych nurse, social security assessor, agency service coordinator, teacher, third officer, case folder)? Give summary @ -I spoke with Dr. De Guzman who will admit the patient Was smoking cessation discussed for >3mins.? @ -No Was critical care preformed (if so, how long)? @ -No Were there social determinants of health that impacted care today? How? (Homelessness, low income, unemployed, alcoholism, drug addiction, transportation, low edu. Level, literacy, decrease access to med. care, assisted, rehab)? @ -No Was there de-escalation of care discussed even if they declined (Discuss DNR or withdrawal of care, Hospice)? DNR status @ -No What co-morbidities impacted this encounter? (DM, HTN, Smoking, COPD, CAD, Cancer, CVA, ARF, Chemo, Hep., AIDS, mental health diagnosis, sleep apnea, morbid obesity)? @ -Ectopic Was patient admitted / discharged? Hospital course, mention meds given and route, prescriptions, significant lab abnormalities, going to OR and other pertinent info. @ -Upon arrival patient was placed into room 23. A thorough history and physical exam was performed. 12-lead EKG is obtained. She remains on carlos nuous pulse ox and cardiac monitoring. Laboratory studies are conducted. Ultrasound is performed which demonstrates a yolk sac inside the uterus. Laboratory studies do demonstrated an elevated troponin. When discussing this with the patient she does admit to recent cocaine use. I did recommend admission in order to trend her troponins and obtain an echo. Patient was agreeable to this. Upon discharge she needs to follow up with MANUFACTURING ASSOCIATE and have a repeat ultrasound performed to identify pole and heart beat. Patient understood this. I spoke with Dr. Pruitt who agreed to admit the patient. She was taken to the floor in stable condition Undiagnosed new problem with uncertain prognosis? @ -Yes Drug Therapy requiring intensive monitoring for toxicity (Heparin, Nitro, Insulin, Cardizem)? @ -No Were any procedures done? @ -No Diagnosis/symptom? @ -Acute chest pain, elevated troponins, cocaine use, first trimester Acute, or Chronic, or Acute on Chronic? @ -Acute Uncomplicated (without systemic symptoms) or Complicated (systemic symptoms)? @ -Complicated Side effects of treatment? @ -No Exacerbation, Progression, or Severe Exacerbation? @ -No Poses a threat to life or bodily function? How? (Chest pain, [place], [place], pneumonia, PE, COPD, DKA, ARF, appy, cholecystitis, CVA, Diverticulitis, Homicidal, Suicidal, threat to staff... and all critical care pts) @ -Yes patient does have elevated cardiac enzymes (Nancy Chavez) - Lab Data Lab Results 07/01/23 07/01/23 07/01/23 Range/Units 18:45 18:45 18:45 WBC 9.5 (3.8-10.6) k/uL RBC 4.30 (3.80-5.40) m/uL Hgb 13.3 (11.4-16.0) gm/dL Hct 40.0 (34.0-46.0) % MCV 93.1 (80.0-100.0) fL MCH 30.8 (25.0-35.0) pg MCHC 33.1 (31.0-37.0) g/dL RDW 12.1 (11.5-15.5) % Plt Count 313 (150-450) k/uL MPV 7.7 Neutrophils % 63 % Lymphocytes % 27 % Monocytes % 4 % Eosinophils % 5 % Basophils % 0 % Neutrophils # 6.0 (1.3-7.7) k/uL Lymphocytes # 2.6 (1.0-4.8) k/uL Monocytes # 0.4 (0-1.0) k/uL Eosinophils # 0.4 (0-0.7) k/uL Basophils # 0.0 (0-0.2) k/uL PT 10.3 (9.0-12.0) sec INR 1.0 (<1.2) APTT 23.6 (22.0-30.0) sec Sodium 134 L (137-145) mmol/L Potassium 4.3 (3.5-5.1) mmol/L Chloride 101 (98-107) mmol/L Carbon Dioxide 26 (22-30) mmol/L Anion Gap 7 mmol/L BUN 8 (7-17) mg/dL Creatinine 0.66 (0.52-1.04) mg/dL Est GFR (CKD-EPI)AfAm >90 (>60 ml/min/1.73 sqM) Est GFR (CKD-EPI)NonAf >90 (>60 ml/min/1.73 sqM) Glucose 105 H (74-99) mg/dL Calcium 9.1 (8.4-10.2) mg/dL Magnesium 2.1 (1.6-2.3) mg/dL Total Bilirubin 0.6 (0.2-1.3) mg/dL AST 17 (14-36) U/L ALT 11 (4-34) U/L Alkaline Phosphatase 59 (38-126) U/L Troponin I (0.000-0.034) ng/mL Total Protein 6.7 (6.3-8.2) g/dL Albumin 4.1 (3.5-5.0) g/dL HCG, Quant mIU/mL Urine Color Urine Appearance (Clear) Urine pH (5.0-8.0) Ur Specific [place] (1.001-1.035) Urine Protein (Negative) Urine Glucose (UA) (Negative) Urine Ketones (Negative) Urine Blood (Negative) Urine Nitrite (Negative) Urine Bilirubin (Negative) Urine Urobilinogen (<2.0) mg/dL Ur Leukocyte Esterase (Negative) Urine RBC (0-5) /hpf Urine WBC (0-5) /hpf Ur Squamous Epith Cells (0-4) /hpf Urine Mucus (None) /hpf Urine HCG, Qual (Not Detectd) 07/01/23 07/01/23 07/01/23 Range/Units 18:45 19:25 19:27 WBC (3.8-10.6) k/uL RBC (3.80-5.40) m/uL Hgb (11.4-16.0) gm/dL Hct (34.0-46.0) % MCV (80.0-100.0) fL MCH (25.0-35.0) pg MCHC (31.0-37.0) g/dL RDW (11.5-15.5) % Plt Count (150-450) k/uL MPV Neutrophils % % Lymphocytes % % Monocytes % % Eosinophils % % Basophils % % Neutrophils # (1.3-7.7) k/uL Lymphocytes # (1.0-4.8) k/uL Monocytes # (0-1.0) k/uL Eosinophils # (0-0.7) k/uL Basophils # (0-0.2) k/uL PT (9.0-12.0) sec INR (<1.2) APTT (22.0-30.0) sec Sodium (137-145) mmol/L Potassium (3.5-5.1) mmol/L Chloride (98-107) mmol/L Carbon Dioxide (22-30) mmol/L Anion Gap mmol/L BUN (7-17) mg/dL Creatinine (0.52-1.04) mg/dL Est GFR (CKD-EPI)AfAm (>60 ml/min/1.73 sqM) Est GFR (CKD-EPI)NonAf (>60 ml/min/1.73 sqM) Glucose (74-99) mg/dL Calcium (8.4-10.2) mg/dL Magnesium (1.6-2.3) mg/dL Total Bilirubin (0.2-1.3) mg/dL AST (14-36) U/L ALT (4-34) U/L Alkaline Phosphatase (38-126) U/L Troponin I 0.076 H* (0.000-0.034) ng/mL Total Protein (6.3-8.2) g/dL Albumin (3.5-5.0) g/dL HCG, Quant 59418.6 mIU/mL Urine Color Colorless Urine Appearance Cloudy H (Clear) Urine pH 7.5 (5.0-8.0) Ur Specific [place] 1.003 (1.001-1.035) Urine Protein Negative (Negative) Urine Glucose (UA) Negative (Negative) Urine Ketones Negative (Negative) Urine Blood Negative (Negative) Urine Nitrite Negative (Negative) Urine Bilirubin Negative (Negative) Urine Urobilinogen <2.0 (<2.0) mg/dL Ur Leukocyte Esterase Negative (Negative) Urine RBC 1 (0-5) /hpf Urine WBC <1 (0-5) /hpf Ur Squamous Epith Cells 3 (0-4) /hpf Urine Mucus Rare H (None) /hpf Urine HCG, Qual (Not Detectd) 07/01/23 Range/Units 19:27 WBC (3.8-10.6) k/uL RBC (3.80-5.40) m/uL Hgb (11.4-16.0) gm/dL Hct (34.0-46.0) % MCV (80.0-100.0) fL MCH (25.0-35.0) pg MCHC (31.0-37.0) g/dL RDW (11.5-15.5) % Plt Count (150-450) k/uL MPV Neutrophils % % Lymphocytes % % Monocytes % % Eosinophils % % Basophils % % Neutrophils # (1.3-7.7) k/uL Lymphocytes # (1.0-4.8) k/uL Monocytes # (0-1.0) k/uL Eosinophils # (0-0.7) k/uL Basophils # (0-0.2) k/uL PT (9.0-12.0) sec INR (<1.2) APTT (22.0-30.0) sec Sodium (137-145) mmol/L Potassium (3.5-5.1) mmol/L Chloride (98-107) mmol/L Carbon Dioxide (22-30) mmol/L Anion Gap mmol/L BUN (7-17) mg/dL Creatinine (0.52-1.04) mg/dL Est GFR (CKD-EPI)AfAm (>60 ml/min/1.73 sqM) Est GFR (CKD-EPI)NonAf (>60 ml/min/1.73 sqM) Glucose (74-99) mg/dL Calcium (8.4-10.2) mg/dL Magnesium (1.6-2.3) mg/dL Total Bilirubin (0.2-1.3) mg/dL AST (14-36) U/L ALT (4-34) U/L Alkaline Phosphatase (38-126) U/L Troponin I (0.000-0.034) ng/mL Total Protein (6.3-8.2) g/dL Albumin (3.5-5.0) g/dL HCG, Quant mIU/mL Urine Color Urine Appearance (Clear) Urine pH (5.0-8.0) Ur Specific [place] (1.001-1.035) Urine Protein (Negative) Urine Glucose (UA) (Negative) Urine Ketones (Negative) Urine Blood (Negative) Urine Nitrite (Negative) Urine Bilirubin (Negative) Urine Urobilinogen (<2.0) mg/dL Ur Leukocyte Esterase (Negative) Urine RBC (0-5) /hpf Urine WBC (0-5) /hpf Ur Squamous Epith Cells (0-4) /hpf Urine Mucus (None) /hpf Urine HCG, Qual Detected (Not Detectd) Disposition <Maggy Agarwal - Last Filed: 07/01/23 17:46> Is patient prescribed a controlled substance at d/c from ED?: No Time of Disposition: 21:52 Decision to Admit Reason: Admit from EC Decision Date: 07/01/23 Decision Time: 21:52 <Nacny Chavez - Last Filed: 07/02/23 00:46> Clinical Impression: Elevated troponin, First trimester , Cocaine use complicating Disposition: ADMITTED IP TO THIS [facility] Condition: Stable
[2023-07-01 18:55] LABS: Basophils % (A) 0 %; Eosinophils # (A) 0.4 k/uL (0-0.7); Eosinophils % (A) 5 %; HGB 13.3 gm/dL (11.4-16.0); Lymphocytes # (A) 2.6 k/uL (1.0-4.8); Lymphocytes % (A) 27 %; MCH 30.8 pg (25.0-35.0); MCHC 33.1 g/dL (31.0-37.0); MCV 93.1 fL (80.0-100.0); Mean Platelet Volume 7.7; Monocytes # (A) 0.4 k/uL (0-1.0); Monocytes % (A) 4 %; Neutrophils % (A) 63 %; Platelet Count 313 k/uL (150-450); RDW 12.1 % (11.5-15.5); WBC 9.5 k/uL (3.8-10.6)
[2023-07-01 19:05] LABS: ALT 11 U/L (4-34); AST 17 U/L (14-36); African American GFR (CKD) >90 (>60 ml/min/1.73 sqM); Albumin 4.1 g/dL (3.5-5.0); Alkaline Phosphatase 59 U/L (38-126); Anion Gap 7 mmol/L; Blood Urea Nitrogen 8 mg/dL (7-17); Calcium 9.1 mg/dL (8.4-10.2); Carbon Dioxide 26 mmol/L (22-30); Chloride 101 mmol/L (98-107); Glucose 105 mg/dL (74-99); Magnesium 2.1 mg/dL (1.6-2.3); Non-African American GFR(CKD) >90 (>60 ml/min/1.73 sqM); Potassium 4.3 mmol/L (3.5-5.1); Sodium 134 mmol/L (137-145); Total Bilirubin 0.6 mg/dL (0.2-1.3); Total Protein 6.7 g/dL (6.3-8.2)
[2023-07-01 19:06] LABS: Partial Thromboplastin Time 23.6 sec (22.0-30.0); Prothrombin Time 10.3 sec (9.0-12.0)
[2023-07-01 19:40] LABS: Appearance,Urine Cloudy (Clear); Bilirubin,Urine Negative (Negative); Blood,Urine Negative (Negative); Color,Urine Colorless; Glucose,Urine (UA) Negative (Negative); Ketones,Urine Negative (Negative); Leukocyte Esterase,Urine Negative (Negative); Mucus,Urine Rare /hpf; Nitrite,Urine Negative (Negative); PH, Urine 7.5 (5.0-8.0); Protein,Urine Negative (Negative); RBC,Urine 1 /hpf (0-5); Specific Gravity,Urine 1.003 (1.001-1.035); Squamous Epithelial Cell,Urine 3 /hpf (0-4); Urobilinogen,Urine <2.0 mg/dL (<2.0); WBC,Urine <1 /hpf (0-5)
--- NOTE | 2023-07-01 20:49 | US ---
EXAMINATION TYPE: Transabdominal DATE OF EXAM: 07/01/2023 8:26 PM COMPARISON: NONE CLINICAL INDICATION: Female, 33 years old with history of ectopic; Abdominal pain. EXAM PERFORMED: Transvaginal (TV) and Transabdominal (TA) EXAM MEASUREMENTS: GESTATIONAL AGE / DATING Physician Established: Not yet established Dates by LMP: (5 weeks/1 days) EDC: 03/01/24 Dates by First Scan: No previous this is first scan Dates by Current Scan for: (6 weeks/1 days) -MSD EDC: 02/23/24 - MSD MATERNAL ANATOMY Uterus: 7.4 x 5.3 x 5.0cm Right Ovary: 2.9 x 2.8 x 1.8cm Left Ovary: 2.2 x 1.6 x 1.5cm Post CDS / Adnexa: appears wnl Presence of free fluid: no Presence of corpus luteal cyst: yes, right ovary = 1.9 x 1.4 x 2.1cm GESTATION / SURVEY MSD: 1.3cm (6 weeks/1 days) Yolk Sac (normal less than 6mm): 0.3cm IUP: No evidence of pole at this time Date of LMP: 05/26/23 Beta HcG (if available): >[id number] IMPRESSION: 1. Small anechoic intrauterine cystic structure without evidence for pole at this time. This is thought to represent an early gestational sac with a positive beta hCG, however ectopic an d abnormal intrauterine cannot be ruled out based on this exam alone. Follow-up with pelvic ultrasound in 7-10 days and serial beta-hCG studies are recommended to en sure further development o f the fetus.
--- NOTE | 2023-07-01 21:22 | XR ---
EXAMINATION TYPE: XR chest 1V DATE OF EXAM: 07/01/2023 9:17 PM COMPARISON: None TECHNIQUE: XR chest 1V Frontal view of the chest. CLINICAL INDICATION:Female, 33 years old with history of Chest Pain; FINDINGS: Lungs/Pleura: There is no evidence of pleural effusion, focal consolidation, or pneumothorax. Pulmonary vascularity: Unremarkable. Heart/mediastinum: Cardiomediastinal silhouette is unremarkable. Musculoskeletal: No acute osseous pathology. IMPRESSION: No acute cardiopulmonary disease/process.
[2023-07-01] MEDS ORDERED: NALOXONE 0.4 MG/ML 1 ML VIAL IV PRN (21:52)
--- NOTE | 2023-07-02 03:47 | P.HPIM ---
History of Present Illness H&P Date: 07/01/23 Chief Complaint: Concerns regarding ectopic 33-year-old female with no significant past medical history admits to cocaine abuse She is coming in after finding out that she is due to missing a period her last menstrual cycle was mid May was not a normal cycle to her. And this time she missed her period for which she got test done came back po the medical center. She has history of ectopic and was having anxiety due to some lower abdominal and back pain that has been going on for a few days which made her concerned for possibility of another episode of ectopic she denies any vaginal discharge or bleeding at this time she denies any fevers or chills she denies any coughing changes in her urinary or bowel habits. She does report some soreness all over her body around her chest and breasts. She denies any nausea or vomiting denies any shortness of breath denies any exertional dyspnea. Denies any nipple discharge or bleeding She does admit to using cocaine couple weeks ago and admits to tobacco smoking. Denies any history of blood clots denies any complications related to other than ectopics. Denies any cardiac history in the past review of systems Pertinent positives as noted in HPI. All other systems were reviewed and are negative on exam Constitutional: No acute distress, conversant, pleasant Eyes: Anicteric sclerae, moist conjunctiva, Pupils equal round reactive to light ENMT: NC/AT Oropharynx clear, no erythema, or exudates Neck: Supple, no masses, or JVD No carotid bruits No thyromegaly Lungs: Clear to auscultation Clear to percussion Normal respiratory effort, no accessory muscle use Cardiovascular: Heart regular in rate and rhythm, No murmurs, gallops, or rubs No peripheral edema Abdominal: Soft Nontender, no guarding, rebound or rigidity Abdomen moving with respiration Normoactive bowel sounds No hepatomegaly, No splenomegaly No palpable mass No abdominal wall hernia noted Skin: Normal temperature, tone, texture, turgor No induration No subcutaneous nodules No rash, lesions No ulcers Extremities: No digital cyanosis No clubbing Pedal pulses intact and symmetrical Radial pulses intact and symmetrical No calf tenderness Psychiatric: Alert and oriented to person, place and time Appropriate affect fair judgement Neuro Muscles Strength 5/5 in all 4 extremities Sensation to light touch grossly present throughout Cranial nerves II-XII grossly intact Lymphatics: no palpable cervical or supraclavicular lymph nodes Past Medical History Past Medical History: GERD/Reflux History of Any Multi-Drug Resistant Organisms: None Reported Past Surgical History: Cholecystectomy, Tonsillectomy Additional Past Surgical History / Comment(s): Exploratory laparotomy with removal of ectopic , surgical removal of Nexplanon implant Past Anesthesia/Blood Transfusion Reactions: No Reported Reaction Past Psychological History: Anxiety, Depression Smoking Status: Current every day smoker Past Alcohol Use History: None Reported Additional Past Alcohol Use History / Comment(s): Has smoked 1/2 PPd for 8 yrs Past Drug Use History: None Reported - Past Family History Mother Family Medical History: Cancer Medications and Allergies Home Medications Medication Instructions Recorded Confirmed Type No Known Home Medications 07/01/23 07/01/23 History Allergies Allergy/AdvReac Type Severity Reaction Status Date / Time No Known Allergies Allergy Verified 07/01/23 22:33 Physical Exam Vitals: Vital Signs Temp Pulse Pulse Resp BP BP Pulse Ox 07/01/23 23:08 98.9 F 80 18 101/58 98 07/01/23 22:52 79 16 100/65 99 07/01/23 17:39 98.0 F 82 15 108/75 100 Intake and Output 07/01/23 07/01/23 07/02/23 14:59 22:59 06:59 Other: # Voids 0 Weight 54.431 kg 54.431 kg Results CBC & Chem 7: 07/01/23 18:45 07/01/23 18:45 Labs: Abnormal Lab Results - Last 24 Hours (Table) 07/01/23 07/01/23 07/01/23 Range/Units 18:45 18:45 19:27 Sodium 134 L (137-145) mmol/L Glucose 105 H (74-99) mg/dL Troponin I 0.076 H* (0.000-0.034) ng/mL Urine Appearance Cloudy H (Clear) Urine Mucus Rare H (None) /hpf Thrombosis Risk Factor Assmnt - Choose All That Apply Any of the Below Risk Factors Present?: No Assessment and Plan Assessment: 33-year-old female coming in with concerns regarding ectopic just found out that she is and having lower abdominal and back soreness I discussed the case with the ED doctor and accepted the admission for cardiology evaluation due to slightly elevated troponin with history of cocaine abuse with anticipated length of stay less than 2 midnights Positive around 6 weeks HCG around 14,501 which is appropriate for the 6 weeks of Obstetric ultrasound showed intrauterine however ectopics could not be ruled out OB consult vitamin Patient counseled to avoid alcohol cocaine and other drugs of abuse Patient counseled to quit smoking Patient indicates this is a desired Elevated troponin with atypical chest discomfort Recent history of cocaine abuse Denies any cardiac history Vital signs stable Trend troponins awake overnight monitor Cardiology evaluation Polysubstance abuse Counseled to quit drug of abuse Full code DVT prophylaxis mechanical
[2023-07-02 08:40] VITALS: RESP 16; TEMP 98.5
[2023-07-02] MEDS ORDERED: PRENATAL VIT-IRON-FOLIC ACID 1 EACH TABLET PO SCH (09:00)
[2023-07-02 09:45] LABS: Basophils # (A) 0.1 k/uL (0-0.2); Basophils % (A) 1 %; Eosinophils # (A) 0.4 k/uL (0-0.7); Eosinophils % (A) 5 %; HCT 40.5 % (34.0-46.0); HGB 13.2 gm/dL (11.4-16.0); Lymphocytes # (A) 2.4 k/uL (1.0-4.8); Lymphocytes % (A) 30 %; MCH 30.7 pg (25.0-35.0); MCHC 32.5 g/dL (31.0-37.0); MCV 94.4 fL (80.0-100.0); Mean Platelet Volume 7.8; Monocytes # (A) 0.4 k/uL (0-1.0); Monocytes % (A) 6 %; Neutrophils # (A) 4.5 k/uL (1.3-7.7); Neutrophils % (A) 57 %; Platelet Count 290 k/uL (150-450); RBC 4.28 m/uL (3.80-5.40); RDW 12.3 % (11.5-15.5); WBC 7.9 k/uL (3.8-10.6)
[2023-07-02 09:53] LABS: African American GFR (CKD) >90 (>60 ml/min/1.73 sqM); Anion Gap 7 mmol/L; Blood Urea Nitrogen 11 mg/dL (7-17); Carbon Dioxide 26 mmol/L (22-30); Chloride 102 mmol/L (98-107); Glucose 92 mg/dL (74-99); Non-African American GFR(CKD) 88 (>60 ml/min/1.73 sqM); Potassium 4.3 mmol/L (3.5-5.1); Sodium 135 mmol/L (137-145)
[2023-07-02 11:26] VITALS: BP 96/62; PULSE 71
[2023-07-02 14:05] LABS: Amphetamine Screen,Urine Detected (NotDetected); Barbiturate Screen,Urine Not Detected (NotDetected); Benzodiazepines Screen,Urine Not Detected (NotDetected); Cocaine Screen,Urine Not Detected (NotDetected); Methadone Screen, Urine Not Detected (NotDetected); Opiate Screen,Urine Not Detected (NotDetected); Oxycodone Screen, Urine Not Detected (NotDetected); Phencyclidine Screen,Urine Not Detected (NotDetected); Tricyclic Antidepressant,Urine Not Detected (NotDetected); Urn Cannabinoid Scrn Detected (NotDetected)
--- NOTE | 2023-07-02 17:27 | CA ---
Transthoracic Echo Report Name: Mary Sin Age: 33 Gender: F : 1990 Exam Date: 07/02/2023 08:14 Exam Location: [facility] Ht (in): 61 Wt (lb): 120 Ordering Physician: Nancy Chavez DO Attending/Referring Phys: Cold Strip Feeder Cheyenne Bello [facility] Procedure CPT: Indications: elevated trop, , cocaine use Cardiac Hx: Technical Quality: Fair Contrast 1: Total Dose (mL): Contrast 2: Total Dose (mL): MEASUREMENTS (Male / Female) Normal Values 2D ECHO LV Diastolic Diameter PLAX 4.0 cm 4.2 - 5.9 / 3.9 - 5.3 cm LV Systolic Diameter PLAX 2.2 cm IVS Diastolic Thickness 0.6 cm 0.6 - 1.0 / 0.6 - 0.9 cm LVPW Diastolic Thickness 0.8 cm 0.6 - 1.0 / 0.6 - 0.9 cm LV Relative Wall Thickness 0.4 Ascending Aorta Diameter 2.5 cm M-MODE Aortic Root Diameter MM 2.5 cm LA Systolic Diameter MM 3.1 cm LA Ao Ratio MM 1.2 AV Cusp Separation MM 1.9 cm DOPPLER AV Peak Velocity 122.1 cm/s AV Peak Gradient 6.0 mmHg AV Mean Velocity 93.7 cm/s AV Mean Gradient 3.8 mmHg AV Velocity Time Integral 26.3 cm LVOT Peak Velocity 99.7 cm/s LVOT Peak Gradient 4.0 mmHg LVOT Velocity Time Integral 19.7 cm Mitral E Point Velocity 90.2 cm/s Mitral A Point Velocity 45.4 cm/s Mitral E to A Ratio 2.0 MV Deceleration Time 241.3 ms LV E' Lateral Velocity 16.3 cm/s Mitral E to LV E' Lateral Ratio 5.5 LV E' Septal Velocity 15.3 cm/s Mitral E to LV E' Septal Ratio 5.9 TR Peak Velocity 203.6 cm/s TR Peak Gradient 16.6 mmHg Right Atrial Pressure 3.0 mmHg Pulmonary Artery Systolic Pressu 19.6 mmHg Right Ventricular Systolic Press 19.6 mmHg FINDINGS Left Ventricle Normal Left ventricular size, wall thickness, systolic function with no obvious regional wall motion abnormalities. Left ventricular ejection fraction is estimated at 55-60%. Right Ventricle Normal right ventricular size. Right Atrium Normal right atrial size. Left Atrium Normal left atrial size. Mitral Valve Structurally normal mitral valve. No mitral regurgitation. Aortic Valve Trileaflet aortic valve. No aortic valve stenosis or regurgitation. Tricuspid Valve Structurally normal tricuspid valve. Mild tricuspid regurgitation. Pulmonic Valve Structurally normal pulmonic valve. No pulmonic regurgitation. Pericardium No pericardial effusion. Aorta Normal size aortic root and proximal ascending aorta. CONCLUSIONS Normal LV size, wall thickness and systolic function. Estimated LVEF 60-65%. No obvious regional wall motion abnormality. No significant diastolic dysfunction. No significant valvular dysfunction. Overall normal chamber sizes. No pericardial effusion. No prior echo to compare with. Previewed by: Dr Ambrose Morales (Electronically Signed) Final Date: 02 July 2023 17:27
--- NOTE | 2023-07-02 18:18 | P.DS ---
Providers Date of admission: 07/01/23 21:52 Expected date of discharge: 07/02/23 Attending physician: Lester De Guzman MD Consults: 07/01/23 21:52 Consult Physician Urgent Consulting Provider: [facility] Consult Reason/Comments: elevated trop, cocaine use Do you want consulting provider notified?: Yes 07/02/23 00:48 Consult Physician Routine Consulting Provider: Marzena Gavin Consult Reason/Comments: / history of ectopic Do you want consulting provider notified?: Yes Primary care physician: Stated None Hospital Course: Discharge Diagnosis: Chest pain and elevated troponins, likely secondary to cocaine and methamphetamine use. Patient evaluated by graphics manager and echocardiogram was completed. Per cardiology echocardiogram is normal findings in clearing patient from cardiac perspective for discharge at this time. Positive . Obstetric ultrasound showing small anechoic intrauterine cystic structure without evidence for pole at this time believed to represent an early gestational sac with a positive beta hCG, however ectopic and abnormal intrauterine cannot be ruled out based upon ultrasound report/findings. [employer] was consulted stated patient will need to follow up outpatient with their office next week for scheduling of repeat ultrasound and have repeat beta hCG completed in 3 days. Patient discharged with prescription for repeat blood work and contact information to schedule appointment in [employer] office. Patient strongly encouraged to avoid drug use during . Polysubstance abuse with cocaine, methamphetamines, and marijuana. Patient was strongly encouraged on inpatient drug and alcohol rehabilitation facility Hospital Course: Patient is a 33-year-old female with a past medical history of polysubstance abuse. She presented to the emergency department on 07/01/23 secondary to concerns of an ectopic . Patient reported lower back and abdominal pain ongoing 3 days and history of ectopic . Patient reports positive home test. In addition patient reports long-standing history of polysubstance abuse with methamphetamines and cocaine. Patient reports she also has 2 small children at home ages 3 and 11. Patient educated on the importance of cessation of drug use and encouraged on inpatient drug and alcohol rehabilitation facility. Patient declined at this time. Patient stated she understands that she cannot be a mother and continue with her current drug habit and states that she realizes it has been ongoing for too long, but states that she will work on stopping on her own and declined assistance at this time. Patient underwent full evaluation in the emergency department. Labs completed and reviewed. CBC unremarkable, quite elation profile normal findings. BMP showing mild hyponatremia with sodium of 134 otherwise normal findings. Liver profile unremarkable. Troponin elevated at 0.076. hCG Quant 14,501.6.. Patient was admitted under our services with consultation to [employer] and cardiology. Troponins trended resulting at 0.076, 0.085, and 0.088. Urinalysis negative for blood or infection. EKG was completed showing normal sinus rhythm at 74 bpm. Chest x-ray is negative for acute cardiopulmonary process. Patient was admitted under our services with consultation to cardiology and [employer]. Troponins were trended and all were elevated at 0.076, 0.085, and 0.088. Patient reports long-standing history of polysubstance abuse with methamphetamines and cocaine use. Urine drug screen positive for amphetamines, methamphetamines, and marijuana. Obstetric ultrasound showing small anechoic intrauterine cystic structure without evidence for pole at this time believed to represent an early gestational sac with a positive beta hCG, however ectopic and abnormal intrauterine cannot be ruled out based upon ultrasound report/findings. [employer] was consulted stated patient will need to follow up outpatient with their office next week for scheduling of repeat ultrasound and have repeat beta hCG completed in 3 days. Patient discharged with prescription for repeat blood work and contact information to schedule appointment in [employer] office. Patient strongly encouraged to avoid drug use during . Patient was evaluated by graphics manager and Echocardiogram completed showing normal EF of 60-65% with no significant valvular or structural abnormalities reported. Cardiology clearing patient from cardiac perspective for discharge recommending cessation of methamphetamine and cocaine use. Physical exam: Vital signs reviewed and stable. General: Nontoxic, no distress and appears stated age. Derm: Skin warm and dry, normal coloration for ethnicity. Head: Atraumatic, normocephalic and symmetric. Eyes: EOMs intact, no lid lag, and anicteric sclera Mouth: no lip lesions, mucus membranes moist Cardiovascular: regular rate and rhythm with normal S1S2, no murmur, positive posterior tibial pulses bilaterally, and cap refill < 2 seconds. Lungs: Respirations even, regular, and unlabored on room air. Lungs CTA bilaterally, no rhonchi, no rales, no wheezing, and no accessory muscle usage. Abdominal: soft, nontender to palpation, no guarding, no appreciable organomegaly Ext: ROM intact. No gross muscle atrophy, no edema, no contractures Neuro: Speech clear, face symmetrical and CN II-XII grossly intact with no noted focal neuro deficits Psych: Alert and oriented to person, place, time, and situation. Appropriate and pleasant affect. A total of 35 minutes of time were spent preparing this complex discharge summary. Pt was discharged on 07/02/23 at 6:25 PM. Patient was seen independently by Nurse Practitioner. This document was prepared using [employer] dictation software. Please allow for errors in manager engine while rare they do occur. Tino Alicea NP rendered care for this patient independently, reviewed the findings and plan as documented in the note above. I did not physically speak with or examine the patient on this date. Patient Condition at Discharge: Stable Plan - Discharge Summary Discharge Rx Participant: No New Discharge Prescriptions: New [id number] Acid [-U Capsule (formulary)] 1 cap PO DAILY 30 Days #30 cap Discharge Medication List [id number] Acid [-U Capsule (formulary)] 1 cap PO DAILY 30 Days #30 cap 07/02/23 [Rx] Follow up Appointment(s)/Referral(s): Ambrose Morales MD [Medical Doctor] - 1 Week Leon Cifuentes MD [STAFF PHYSICIAN] - 1 Week (Office is currently closed. PLease call to schedule a follow up (OBGYN)) Ambulatory/Diagnostic Orders: Miscellaneous Lab Order [LAB.AMB] Time Frame: 3 Days, Location: None Selected Patient Instructions/Handouts: How to Stop Smoking (DC), Cocaine Abuse (ED), Methamphetamine Abuse (DC), Polysubstance Abuse (ED), at 7 to 10 Weeks (DC) Activity/Diet/Wound Care/Special Instructions: As discussed, strongly recommend drug and alcohol rehabilitation facility to assist you in achieving sobriety safely not only for your health but the health of your unborn child. You will need to have repeat hCG levels in 3 days and follow up outpatient with [employer] for needed repeat ultrasound in 7-10 days. Discharge/Stand Alone Forms: AA Meetings [address] - [facility], AA Meetings [place], [facility], Outpatient Counseling Discharge Disposition: HOME SELF-CARE
--- NOTE | 2023-07-02 22:45 | P.CRDCN ---
History of Present Illness Consult date: 07/02/23 History of present illness: HISTORY OF PRESENTING ILLNESS 33-year-old with no significant past medical history with prior to pregnancies with the babies and a prior ectopic was a cocaine user presented to the hospital in an anxious state after finding that she is after missing a period. She also reports that she has used cocaine last 2-3 days. She however denies having any active chest pain chest pressure or shortness of breath. At the time of presentation she had some chest discomfort which is related to her back and she was anxious if cocaine use as caused any cardiac damage. She is symptom-free at this time. EKG shows sinussignificant ST-T wave changes Her troponins are 0.07, 0.08. Her echocardiogram was within normal limits with normal LVEF and no active dysfunction REVIEW OF SYSTEMS 14 point review of system is negative except what is mentioned above in HPI. PHYSICAL EXAMINATION Vital signs reviewed. Head: Normocephalic. Eyes: Sclerae nonicteric. Neck: Brisk carotid upstroke, no jugular venous distention. Lungs: Clear to auscultation. Heart: Regular rate and rhythm, S1-S2, no S3, no murmur or rub. Abdomen: Soft nontender, positive bowel sounds no organomegaly. Extremities: No edema, intact distal pulses. ASSESSMENT Atypical chest pain with cocaine use Elevated troponin but with flat pattern, likely noncardiac Anxiety after finding out that she is Positive around 6 weeks Polysubstance abuse PLAN Counseled about importance of abstinence from drugs during Patient and were discharged from cardiac standpoint Past Medical History Past Medical History: GERD/Reflux History of Any Multi-Drug Resistant Organisms: None Reported Past Surgical History: Cholecystectomy, Tonsillectomy Additional Past Surgical History / Comment(s): Exploratory laparotomy with removal of ectopic , surgical removal of Nexplanon implant Past Anesthesia/Blood Transfusion Reactions: No Reported Reaction Past Psychological History: Anxiety, Depression Smoking Status: Current every day smoker Past Alcohol Use History: None Reported Additional Past Alcohol Use History / Comment(s): Has smoked 1/2 PPd for 8 yrs Past Drug Use History: None Reported - Past Family History Mother Family Medical History: Cancer Medications and Allergies Home Medications Medication Instructions Recorded Confirmed Type Xmu-[id number]-[id number] Acid 1 cap PO DAILY 30 Days #30 cap 07/02/23 Rx [-U Capsule (formulary)] Allergies Allergy/AdvReac Type Severity Reaction Status Date / Time No Known Allergies Allergy Verified 07/01/23 22:33 Physical Exam Vitals: Vital Signs Temp Pulse Pulse Resp BP BP Pulse Ox 07/02/23 11:25 71 16 96/62 100 07/02/23 08:40 98.5 F 79 16 94/58 99 07/02/23 04:00 68 18 103/57 97 07/01/23 23:08 98.9 F 80 18 101/58 98 07/01/23 22:52 79 16 100/65 99 Intake and Output 07/02/23 07/02/23 07/02/23 06:59 14:59 22:59 Other: # Voids 2 3 Weight 54.431 kg Results 07/02/23 08:26 07/02/23 08:26 Cardiac Enzymes 07/01/23 07/02/23 Range/Units 22:00 04:05 Troponin I 0.085 H* 0.088 H* (0.000-0.034) ng/mL CBC 07/02/23 Range/Units 08:26 WBC 7.9 (3.8-10.6) k/uL RBC 4.28 (3.80-5.40) m/uL Hgb 13.2 (11.4-16.0) gm/dL Hct 40.5 (34.0-46.0) % Plt Count 290 (150-450) k/uL Comprehensive Metabolic Panel 07/02/23 Range/Units 08:26 Sodium 135 L (137-145) mmol/L Potassium 4.3 (3.5-5.1) mmol/L Chloride 102 (98-107) mmol/L Carbon Dioxide 26 (22-30) mmol/L BUN 11 (7-17) mg/dL Creatinine 0.87 (0.52-1.04) mg/dL Glucose 92 (74-99) mg/dL Calcium 9.0 (8.4-10.2) mg/dL Intake and Output 07/02/23 07/02/23 07/02/23 06:59 14:59 22:59 Other: # Voids 2 3 Weight 54.431 kg 07/02/23 08:26 07/02/23 08:26
== END 2023-07-02 18:42 | disposition home or self-care (01) ==
LOC: EC 16:22 → 3SCARD 21:52
PROVIDERS: ADMIT Internal Medicine; ATTEND Internal Medicine
DX: O26.91 Pregnancy related conditions, unspecified, first trimester (principal); R07.89 Other chest pain; R77.8 Other specified abnormalities of plasma proteins; M54.9 Dorsalgia, unspecified; O99.321 Drug use complicating pregnancy, first trimester; F14.10 Cocaine abuse, uncomplicated; F15.90 Other stimulant use, unspecified, uncomplicated; Z3A.01 Less than 8 weeks gestation of pregnancy; O26.891 Other specified pregnancy related conditions, first trimester; E87.1 Hypo-osmolality and hyponatremia; K21.9 Gastro-esophageal reflux disease without esophagitis; F32.A Depression, unspecified; F41.9 Anxiety disorder, unspecified; F17.200 Nicotine dependence, unspecified, uncomplicated; Z87.59 Personal history of other complications of pregnancy, childbirth and the puerperium; Z71.51 Drug abuse counseling and surveillance of drug abuser; Z71.6 Tobacco abuse counseling; Z80.9 Family history of malignant neoplasm, unspecified
CPT/HCPCS: 99285; 36415; 93005; 93306; 86900; 86901; 80053; 80048; 83735; 84484 ×2; 85025 ×2; 85610; 85730; 86850; 81001; 81025; 84702; 80306; 71045; 76801; 76817; G0378 ×2; S0197